=== PATIENT | female | born 1975 | race African-American/Black ===

== ENCOUNTER 2021-01-26 12:22 | Emergency (ER) | payer OTHER ==
[~2021-01-26] VITALS: Ht 167.6 cm; Wt 112.5 kg
[2021-01-26] MEDS ORDERED: NAPROXEN500 MG PO (12:32)
[2021-01-26] MEDS ORDERED: FLEXERIL PO (14:00)
[2021-01-26 14:11] VITALS: BP 112/55
== END 2021-01-26 14:06 | disposition home or self-care (01) ==
LOC: ER 12:22
DX: S16.1XXA Strain of muscle, fascia and tendon at neck level, initial encounter (principal); S39.012A Strain of muscle, fascia and tendon of lower back, initial encounter; S29.012A Strain of muscle and tendon of back wall of thorax, initial encounter; Z79.1 Long term (current) use of non-steroidal anti-inflammatories (NSAID); V89.2XXA Person injured in unspecified motor-vehicle accident, traffic, initial encounter; Y93.89 Activity, other specified; Y92.89 Other specified places as the place of occurrence of the external cause; Y99.8 Other external cause status